=== PATIENT | male | born 1960 | race Caucasian/White ===

== ENCOUNTER → 2018-05-22 | Outpatient (CLI) | payer OTHER ==
[~2018-05-22] VITALS: Ht 165.1 cm; Wt 83.9 kg
[~2018-05-22] MED LIST: CATHETER FLUSH 10 ML SYR IV PRN; EFFEXOR PO; GADOBUTROL 7.5 MMOL/7.5 ML (GADAVIST) VIAL IV ONE; IOHEXOL 300 MG/ML 50 ML (OMNIPAQUE 300) VIAL IV ONE; LIDOCAINE 1% INJ 20 ML 20 ML VIAL INJ ONE
[2018-05-22 08:40] VITALS: BP 118/64
[2018-05-22 09:02] VITALS: BP 119/67
--- NOTE | 2018-05-22 10:00 | Diagnostic Imaging Report ---
PATIENT HISTORY: BICIPITAL TENDINITIS; right shoulder pain for eight months. Weight lifting for 45 years. TECHNIQUE: Multiplanar multisequence MRI examination of the right shoulder was performed following intra-articular injection of contrast. COMPARISON: None. FINDINGS: No acute fracture is seen in the right shoulder. Alignment appears normal. There is low-grade partial thickness tearing at the articular surface of the distal supraspinatus tendon. There is low-grade partial thickness tearing at the articular surface of the infraspinatus tendon as well, with a intrasubstance component extending medially. There is tendinopathy of the supraspinatus and infraspinatus tendons. The subscapularis tendon demonstrates a small full-thickness tear, with additional extensive high-grade partial-thickness tearing at the articular surface. The teres minor tendon appears intact. There is marked tendinosis of the long head of the biceps tendon proximally, with a longitudinal split tear as it is perched on the lesser tuberosity. The tendon sheath is distended with contrast. There is fluid in the subacromial subdeltoid bursa and the superior subscapularis recess. The glenoid labrum demonstrates minimal irregularity anteriorly, but no displaced labral tear seen. No para-labral cysts are identified. The acromion has a curved undersurface without significant hooking. There are are marked degenerative changes in the acromioclavicular joint, causing mass effect on the underlying supraspinatus. The coracoacromial and coracoclavicular ligaments are intact. No focal muscular atrophy is seen. Mild edema seen in the anterior soft tissues from recent injection. There is a sclerotic focus at the spine of the scapula, likely a bone island. No axillary lymphadenopathy is seen. IMPRESSION: 1. Marked tendinosis and split tear of the right biceps tendon as it is perched on the lesser tuberosity. 2. Small full-thickness tear of the subscapularis tendon with additional extensive high-grade partial-thickness tearing. 3. Low-grade partial thickness tearing of the supraspinatus and infraspinatus tendons with intrasubstance extension. 4. Marked degenerative change in the right acromioclavicular joint. Dictated by: Dictated on workstation # [id number]
--- NOTE | 2018-05-22 11:27 | Diagnostic Imaging Report ---
Indication: Right shoulder pain. The patient was brought to the procedure room and placed on the table in the supine position. The skin of the right shoulder was prepped and draped in usual sterile fashion. A small amount of 1% lidocaine was utilized for local anesthesia. A 21-gauge needle was advanced and placed with the tip at the rotator interval. A 50 mL solution of iodinated contrast, normal saline gadolinium was injected under fluoroscopic observation. 33 seconds of fluoroscopy was utilized. Needle was withdrawn, hemostasis was obtained. The patient tolerated the procedure well and was sent to MRI in satisfactory condition. Impression: Right shoulder injection of gadolinium contrast solution using fluoroscopy. Dictated by: Dictated on workstation # [id number]
== END ==
LOC: RAD 08:26
PROVIDERS: ATTEND Orthopaedic Surgery
DX: S46.211A Strain of muscle, fascia and tendon of other parts of biceps, right arm, initial encounter (principal); S46.811A Strain of other muscles, fascia and tendons at shoulder and upper arm level, right arm, initial encounter; M75.111 Incomplete rotator cuff tear or rupture of right shoulder, not specified as traumatic; M75.21 Bicipital tendinitis, right shoulder; M19.011 Primary osteoarthritis, right shoulder
CPT/HCPCS: 23350; 73040; 73222

== ENCOUNTER → 2018-08-14 | Outpatient (CLI) | payer OTHER ==
[~2018-08-14] MED LIST changes: -CATHETER FLUSH 10 ML SYR IV PRN; -GADOBUTROL 7.5 MMOL/7.5 ML (GADAVIST) VIAL IV ONE; -IOHEXOL 300 MG/ML 50 ML (OMNIPAQUE 300) VIAL IV ONE; -LIDOCAINE 1% INJ 20 ML 20 ML VIAL INJ ONE
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
== END ==
LOC: RAD 13:58
PROVIDERS: ATTEND Orthopaedic Surgery
DX: M50.13 Cervical disc disorder with radiculopathy, cervicothoracic region (principal); M48.02 Spinal stenosis, cervical region; M25.78 Osteophyte, vertebrae; M99.71 Connective tissue and disc stenosis of intervertebral foramina of cervical region; M43.12 Spondylolisthesis, cervical region; M51.14 Intervertebral disc disorders with radiculopathy, thoracic region; Z98.1 Arthrodesis status; Z87.828 Personal history of other (healed) physical injury and trauma
CPT/HCPCS: 72141

== ENCOUNTER → 2021-05-19 | Outpatient (CLI) | payer OTHER | LOC: LABNPT 08:21 | PROVIDERS: ATTEND Internal Medicine | DX: Z20.822 Contact with and (suspected) exposure to COVID-19 (principal) | CPT/HCPCS: 87636 ==